=== PATIENT | male | born 1930 | race Caucasian/White ===

== ENCOUNTER → 2018-02-10 11:00 | Outpatient (CLI) | payer MEDICARE, OTHER ==
[2015-04-25 10:38] VITALS: BMI 24.4
[~2018-02-10 11:00] MED LIST: BAYER CHEWABLE81 MG PO; CARDIZEM CD240 MG PO; COMBIVENT RESPIM4 GM INH; COUMADIN5 MG PO; COUMADIN7.5 MG PO; COZAAR50 MG PO; FISH OIL 1,0001 CA1 PO; IPRAT-ALBUT 0.5-3 ML UPD; K-DUR20 MEQ PO; LASIX20 MG PO; LASIX40 MG; LASIX40 MG PO; LEVAQUIN500 MG PO; MULTI-DAY VITAM1 TAB PO; SYNTHROID25 MCG PO; VITAMIN B-1100 M1 PO
[2018-02-10 12:29] LABS: CREATININE - SERUM 1.5 mg/dL (0.6-1.3)
== END | disposition home or self-care (01) ==
LOC: D.CT 02-09 16:30
PROVIDERS: Family Medicine
DX: J90 Pleural effusion, not elsewhere classified (principal)

== ENCOUNTER → 2020-02-02 12:41 | Outpatient (CLI) | payer MEDICARE, OTHER ==
[2015-04-25 10:38] VITALS: BMI 24.4
== END | disposition home or self-care (01) ==
LOC: D.LAB 12:41
PROVIDERS: ATTEND Family Medicine
DX: R19.7 Diarrhea, unspecified (principal)

== ENCOUNTER → 2020-11-01 | Emergency (ER) | payer OTHER ==
[~2020-11-01] VITALS: Ht 182.9 cm; Wt 81.8 kg
[~2020-11-01] MED LIST changes: +SYNTHROID50 MCG PO
[2020-11-01 14:35] VITALS: Ht 182.9 cm; Wt 81.8 kg
[2020-11-01 15:17] LABS: HEMATOCRIT 32.9 % (42.0-54.0); LYMPHOCYTES 7.5 % (15-50); MCH 34.2 pg (26.0-34.0); MCHC 33.4 g/dL (31.0-37.0); MCV 102.2 fL (80.0-100.0); MEAN PLATELET VOLUME 10.7 fL (7.4-10.4); NEUTROPHILS 81.3 % (40-80); PLATELET COUNT 183 10x3/uL (130-400); RBC 3.22 10x6/uL (4.20-6.10); RDW 13.4 % (11.5-14.5); WBC 7.2 10x3/uL (4.8-10.8)
[2020-11-01 15:21] LABS: CALC OSMOLALITY 286 mosm/kg (275-300); CALCIUM 9.4 mg/dL (8.5-10.1); CHLORIDE - SERUM 106 mmol/L (98-107); CREATININE - SERUM 1.4 mg/dL (0.6-1.3); GLUCOSE 110 mg/dL (74-106); POTASSIUM - SERUM 3.8 mmol/L (3.5-5.1); SODIUM 140 mmol/L (136-145); UREA NITROGEN 31 mg/dL (7-18); eGFR NON AFRICAN AMERICAN 51 mL/min (90-120)
[2020-11-01 15:37] LABS: ALBUMIN 2.8 g/dL (3.4-5.0); ALKALINE PHOSPHATASE 78 U/L (30-120); ALT (SGPT) 20 U/L (10-68); APTT 35.4 SECONDS (22.8-39.4); BILIRUBIN - TOTAL 0.36 mg/dL (0.2-1.3); CKMB 2.7 U/L (0.0-3.6); CREATINE KINASE 298 UL (21-232); INR 1.18 (0.85-1.17); MAGNESIUM - SERUM 1.9 mg/dL (1.8-2.4); PROTEIN - SERUM 6.8 g/dL (6.4-8.2); PROTIME 13.9 SECONDS (11.6-15.0); THYROID STIMULATING HORMONE 8.34 uIU/mL (0.36-3.74); TROPONIN-I 0.031 ng/mL (0.000-0.060)
[2020-11-01 15:57] LABS: BILIRUBIN NEGATIVE (NEGATIVE); KETONE NEGATIVE (NEGATIVE); NITRITE NEGATIVE (NEGATIVE); UROBILINOGEN NORMAL mg/dL (< 2)
[2020-11-01 16:01] LABS: WHITE CELLS - URINE 0-5 HPF (0-1)
[2020-11-01 16:02] LABS: BACTERIA FEW HPF (NONE SEEN); SQUAMOUS EPITHELIAL NONE SEEN HPF (0-4)
[2020-11-01 16:24] LABS: UDS - AMPHET NEGATIVE QUAL (NEGATIVE); UDS - BARB NEGATIVE QUAL (NEGATIVE); UDS - BENZO NEGATIVE QUAL (NEGATIVE); UDS - COCAINE NEGATIVE QUAL (NEGATIVE); UDS - OPIATE POSITIVE QUAL (NEGATIVE); UDS - PCP NEGATIVE QUAL (NEGATIVE); UDS - THC NEGATIVE QUAL (NEGATIVE)
[2020-11-01 17:04] VITALS: BP 189/83
== END | disposition home or self-care (01) ==
LOC: D.ER 14:26
PROVIDERS: Emergency Medicine
DX: I11.0 Hypertensive heart disease with heart failure (principal); I50.9 Heart failure, unspecified; E03.9 Hypothyroidism, unspecified; R53.1 Weakness; Z86.73 Personal history of transient ischemic attack (TIA), and cerebral infarction without residual deficits

== ENCOUNTER → 2021-02-14 22:01 | Outpatient (CLI) | payer MEDICARE ==
[2020-11-01 14:35] VITALS: BMI 24.4
[2021-02-14 22:17] LABS: BASOPHILS 0.8 % (0-2); BILIRUBIN NEGATIVE (NEGATIVE); EOSINOPHILS 4.2 % (0-7); HEMATOCRIT 32.4 % (42.0-54.0); HEMOGLOBIN 10.7 g/dL (13.5-17.5); KETONE NEGATIVE mg/dL (< 1+); LYMPHOCYTES 10.9 % (15-50); MCHC 32.9 g/dL (31.0-37.0); MCV 100.2 fL (80.0-100.0); MEAN PLATELET VOLUME 9.3 fL (7.4-10.4); MONOCYTES 6.3 % (2-11); NEUTROPHILS 77.8 % (40-80); NITRITE NEGATIVE (NEGATIVE); RBC 3.24 10x6/uL (4.20-6.10); RDW 13.7 % (11.5-14.5); UROBILINOGEN 2 mg/dL (< 2); WBC 7.4 10x3/uL (4.8-10.8)
[2021-02-14 22:18] LABS: ANION GAP 11.5 mmol/L (8-16); CALCIUM 9.5 mg/dL (8.5-10.1); CARBON DIOXIDE 29.8 mmol/L (21.0-32.0); CREATININE - SERUM 1.5 mg/dL (0.6-1.3); POTASSIUM - SERUM 4.3 mmol/L (3.5-5.1)
[2021-02-14 22:20] LABS: GRANULAR CAST 2 LPF (0-1)
[2021-02-14 22:24] LABS: PLATELET COUNT 310 10x3/uL (130-400)
== END | disposition home or self-care (01) ==
LOC: D.LABREF 22:01
PROVIDERS: ATTEND Family Medicine
DX: I50.9 Heart failure, unspecified (principal)